=== PATIENT | female | born 1945 | race Caucasian/White ===

== ENCOUNTER 2020-04-06 09:19 | Outpatient (CLI) | payer MEDICARE ==
[2020-04-06 10:03] LABS: BASOPHILS % (AUTO) 0.6 % (0-1); EOSINOPHILS # (AUTO) 0.2 X10'3 (0-0.9); EOSINOPHILS % (AUTO) 1.9 % (0-6); HEMATOCRIT 38.4 % (35.0-45.0); HEMOGLOBIN 12.8 g/dl (12.0-16.0); LYMPHOCYTES % (AUTO) 12.3 % (21-51); MEAN CORPUSCULAR HEMOGLOBIN 29.9 PG (27.0-31.0); MEAN CORPUSCULAR HGB CONC 33.4 g/dL (33.0-36.5); MEAN CORPUSCULAR VOLUME 89.6 FL (78-98); MEAN PLATELET VOLUME 8.6 FL (7.4-10.4); MONOCYTES # (AUTO) 0.6 X10'3 (0-0.9); MONOCYTES % (AUTO) 7.5 % (2-12); NEUTROPHILS # (AUTO) 6.4 X10'3 (1.8-7.7); NEUTROPHILS % (AUTO) 77.7 % (42-75); PLATELET COUNT 308 X10'3 (140-440); RED BLOOD COUNT 4.29 X10'6 (4.20-5.60); RED CELL DISTRIBUTION WIDTH 13.1 % (11.5-14.5); WHITE BLOOD COUNT 8.2 X10'3 (4.5-11.0)
[2020-04-06 10:19] LABS: ALANINE AMINOTRANSFERASE 12 U/L (12-78); ALBUMIN 3.4 G/DL (3.4-5.0); ALBUMIN/GLOBULIN RATIO 0.8 (1.1-1.5); ALKALINE PHOSPHATASE 98 IU/L (46-116); ANION GAP 10 (8-16); ASPARTATE AMINO TRANSFERASE 13 U/L (10-37); BILIRUBIN,TOTAL 0.3 MG/DL (0.1-1.0); BLOOD UREA NITROGEN 13 MG/DL (7-18); BUN/CREATININE RATIO 19.1 (6.6-38.0); CALCIUM 9.2 MG/DL (8.5-10.1); CHLORIDE 104 MMOL/L (99-107); CREATININE 0.68 MG/DL (0.40-0.90); GLUCOSE 129 MG/DL (70-104); POTASSIUM 4.5 MMOL/L (3.5-5.1); SODIUM 140 MMOL/L (135-145); TOTAL CARBON DIOXIDE 25.9 MMOL/L (24-32); TOTAL PROTEIN 7.6 G/DL (6.4-8.2); eGFR 85 ML/MIN
== END 2020-04-06 23:59 | disposition home or self-care (01) ==
LOC: RAD 09:19
PROVIDERS: ATTEND Family Medicine
DX: E11.9 Type 2 diabetes mellitus without complications (principal); E78.5 Hyperlipidemia, unspecified; R10.9 Unspecified abdominal pain; Z87.42 Personal history of other diseases of the female genital tract; Z23 Encounter for immunization
CPT/HCPCS: 36415; 76856; 80053; 85025; 93976

== ENCOUNTER 2020-04-17 11:43 | Emergency (ER) | payer MEDICARE ==
[~2020-04-17] VITALS: Ht 172.7 cm; Wt 99.7 kg
[2020-04-17] VITALS (9 sets, daily range): BP systolic 97–156; BP diastolic 71–77
[2020-04-17] MEDS ORDERED: LIDOcaine 2% 10ml TOPICAL JELLY (Urojet) TP ONE (12:20)
[2020-04-17 12:45] LABS: BASOPHILS # (AUTO) 0.1 X10'3 (0-0.2); EOSINOPHILS # (AUTO) 0.2 X10'3 (0-0.9); HEMOGLOBIN 12.7 g/dl (12.0-16.0); MONOCYTES # (AUTO) 0.7 X10'3 (0-0.9)
[2020-04-17 12:47] LABS: CLARITY,URINE SLIGHTLY CLOUDY (Clear); COLOR,URINE STRAW (Yellow); GLUCOSE, URINE NEGATIVE (Neg); KETONES,URINE NEGATIVE (Neg); LEUKOCYTE ESTERASE ,URINE TRACE (Neg); NITRITES, URINE NEGATIVE (Neg); OCCULT BLOOD,URINE SMALL (Neg); PROTEIN,URINE NEGATIVE (Neg); UROBILINOGEN,URINE 0.2 E.U/dL (0.2-1.0)
[2020-04-17 12:56] LABS: PARTIAL THROMBOPLASTIN TIME 26 SECONDS (22-32)
[2020-04-17 12:56] LABS: UA COLLECTION TYPE CLN CATCH MIDSTREAM
[2020-04-17 12:57] LABS: BASOPHILS % (AUTO) 0.5 % (0-1); EOSINOPHILS % (AUTO) 1.8 % (0-6); HEMATOCRIT 38.4 % (35.0-45.0); LYMPHOCYTES # (AUTO) 1.4 X10'3 (1.1-4.8); LYMPHOCYTES % (AUTO) 12.9 % (21-51); MEAN CORPUSCULAR HEMOGLOBIN 29.7 PG (27.0-31.0); MEAN CORPUSCULAR VOLUME 89.9 FL (78-98); MEAN PLATELET VOLUME 9.3 FL (7.4-10.4); NEUTROPHILS # (AUTO) 8.2 X10'3 (1.8-7.7); NEUTROPHILS % (AUTO) 77.8 % (42-75); PLATELET COUNT 342 X10'3 (140-440); RED BLOOD COUNT 4.27 X10'6 (4.20-5.60); WHITE BLOOD COUNT 10.5 X10'3 (4.5-11.0)
[2020-04-17 12:58] LABS: MUCUS STRANDS FEW /LPF (Neg); SQUAMOUS EPITHELIAL CELL,UR MODERATE /LPF (FEW); TRANSITIONAL EPI CELLS,URINE FEW /HPF
[2020-04-17 12:59] LABS: BACTERIA,URINE FEW /HPF (Neg); WBC,URINE 0-4 /HPF (0-4)
[2020-04-17 13:02] LABS: ALANINE AMINOTRANSFERASE 12 U/L (12-78); ALBUMIN 3.8 G/DL (3.4-5.0); ALBUMIN/GLOBULIN RATIO 0.9 (1.1-1.5); ALKALINE PHOSPHATASE 113 IU/L (46-116); ANION GAP 12 (8-16); ASPARTATE AMINO TRANSFERASE 16 U/L (10-37); BILIRUBIN,TOTAL 0.3 MG/DL (0.1-1.0); BLOOD UREA NITROGEN 12 MG/DL (7-18); BUN/CREATININE RATIO 19.7 (6.6-38.0); CALCIUM 10.1 MG/DL (8.5-10.1); CHLORIDE 104 MMOL/L (99-107); CREATININE 0.61 MG/DL (0.40-0.90); GLUCOSE 95 MG/DL (70-104); POTASSIUM 4.5 MMOL/L (3.5-5.1); SODIUM 143 MMOL/L (135-145); TOTAL CARBON DIOXIDE 27.1 MMOL/L (24-32); TOTAL PROTEIN 8.2 G/DL (6.4-8.2); eGFR > 90 ML/MIN
--- NOTE | 2020-04-17 13:31 | NUR ---
DR SMITH AT BEDSIDE .
[2020-04-17] MEDS ORDERED: ondansetron/PF 4mg/2ml inj IV PRN (14:10)
[2020-04-17] MEDS ORDERED: fentaNYL/PF 50MCG/1 ML 2ML syringe IV PRN (14:10)
[2020-04-17] MEDS ORDERED: morphine 2 MG/ML inj. syringe IV PRN (14:10)
[2020-04-17] MEDS ORDERED: ringers solution, lacted 1,000 ML IV SCH (14:10)
[2020-04-17] MEDS ORDERED: sevoflurane 250ml liquid IH ONE (14:25)
[2020-04-17] MEDS ORDERED: cefazolin/dext.iso 2,000MG/50 ML BAG IV ONE (14:25)
[2020-04-17] MEDS ORDERED: rocuronium 10mg/ml inj IV ONE (14:28)
[2020-04-17] MEDS ORDERED: LIDOcaine 2% (20mg/ml) 5ml vial ONE (14:28)
[2020-04-17] MEDS ORDERED: fentaNYL/PF 50MCG/1 ML 2ML syringe ONE (14:28)
[2020-04-17] MEDS ORDERED: tranexamic acid 100mg/ml inj. ONE (15:09)
[2020-04-17] MEDS ORDERED: ferric subsulfate solution/paste 1 APPLIC SOL.W.APPL TP ONE (15:21)
[2020-04-17] MEDS ORDERED: glycopyrrolate 0.2mg/ml inj ONE (15:33)
[2020-04-17] MEDS ORDERED: neostigmine methylsulfate 1 MG/ML 10ml vial ONE (15:33)
[2020-04-17] MEDS ORDERED: propofol inj 20 ML IV ONE (15:33)
[2020-04-17] MEDS ORDERED: ondansetron/PF 4mg/2ml inj ONE (15:33)
--- NOTE | 2020-04-17 15:45 | NUR ---
Received from OR via [facility] , accompanied by Anesthesiologist DR ANN and report given by Anesthesiolgist. PT ALERT AND ORIENTED, SARAH PAD IN PLACE WITH NO NOTED DRAINAGE AT THIS TIME. PT STATES SHE IS COMFORTABLE AT THIS TIME AND DENIES NAUSEA.
[2020-04-17] MEDS ORDERED: traMADol 50MG tablet PO ONE (18:15)
--- NOTE | 2020-04-17 18:15 | NUR ---
PT UP TO RESTROOM ATTEMPING TO VOID, UNABLE TO VOID YET. BLADDER SCAN ONLY REVEALS 120 CC.
--- NOTE | 2020-04-17 18:25 | NUR ---
CALLED DR SMITH. LET HER KNOW PT UNABLE TO VOID AND BLADDER SCAN LESS THAN 130 ML. OK TO STRAIGHT CATH PT AND DC TO HOME. PT AGREEABLE TO PLAN.
--- NOTE | 2020-04-17 18:35 | NUR ---
PT STRAIGHT CATH PER MD ORDERS, 300 CC OF CLEAR YELLOW URINE DRAINED. PT STATES READINESS FOR DC TO HOME.
--- NOTE | 2020-04-17 18:55 | NUR ---
PT STATES UNDERSTANDING REGARDING ALL DC INSTRUCTIONS AND STATES READINESS FOR DC TO HOME. PT STATES PAIN IS TOLERABLE. SARAH PAD IN PLACE, PT HAS HAS MODERATE DRAINAGE ON SARAH PAD AND EVEN SCANT DRAINAGE AT TIMES. ALL INSTRUCTIONS REVIEWED W/ PT AND SPOUSE AND BOTH STATE UNDERSTANDING. OK FOR PT TO DC TO HOME AND PT IS TO GO TO DR SMITH OFFICE FIRST THING IN MORNING IF SHE IS UNABLE TO VOID BY MORNING.
== END 2020-04-17 18:55 | disposition home or self-care (01) ==
LOC: ER 11:44
DX: D25.9 Leiomyoma of uterus, unspecified (principal); R10.2 Pelvic and perineal pain; R33.9 Retention of urine, unspecified; Z20.822 Contact with and (suspected) exposure to COVID-19; Z87.42 Personal history of other diseases of the female genital tract; Z86.19 Personal history of other infectious and parasitic diseases; Z88.5 Allergy status to narcotic agent
CPT/HCPCS: 36415; 58145; 71045; 80053; 81001; 82948; 85025; 85610; 85730; 86885; 86900; 86901; 87088; 87426; 93005; 96374; 99285; J2001; J2270; J2405; J2704; J2710; J3010; J7120; 88305; A4618; A7000; J3490

== ENCOUNTER 2020-04-24 15:17 | Emergency (ER) | payer MEDICARE ==
[~2020-04-24] VITALS: Ht 172.7 cm; Wt 97.8 kg
[2020-04-24 15:47] VITALS: BP 139/74
== END 2020-04-24 20:48 | disposition home or self-care (01) ==
LOC: ER 15:17
DX: Z02.89 Encounter for other administrative examinations (principal); R31.9 Hematuria, unspecified; R30.0 Dysuria; I10 Essential (primary) hypertension; E11.9 Type 2 diabetes mellitus without complications; E03.9 Hypothyroidism, unspecified; Z98.890 Other specified postprocedural states; Z72.89 Other problems related to lifestyle; Z88.5 Allergy status to narcotic agent; Z88.8 Allergy status to other drugs, medicaments and biological substances
CPT/HCPCS: 99284

== ENCOUNTER 2020-04-30 08:46 | Outpatient (CLI) | payer MEDICARE ==
[~2020-04-30 08:46] MED LIST: iohexol 300mg/ml 100ml inj. ONE
== END 2020-04-30 23:59 | disposition home or self-care (01) ==
LOC: 64 CT 08:46
PROVIDERS: ATTEND Family Medicine
DX: C49.5 Malignant neoplasm of connective and soft tissue of pelvis (principal); I25.10 Atherosclerotic heart disease of native coronary artery without angina pectoris; K80.20 Calculus of gallbladder without cholecystitis without obstruction; I70.0 Atherosclerosis of aorta; M25.78 Osteophyte, vertebrae; K57.30 Diverticulosis of large intestine without perforation or abscess without bleeding; M47.817 Spondylosis without myelopathy or radiculopathy, lumbosacral region; M48.07 Spinal stenosis, lumbosacral region; M85.88 Other specified disorders of bone density and structure, other site; M43.17 Spondylolisthesis, lumbosacral region; K40.90 Unilateral inguinal hernia, without obstruction or gangrene, not specified as recurrent
CPT/HCPCS: 71260; 74177; Q9967

== ENCOUNTER 2020-05-11 18:23 | Emergency (ER) | payer MEDICARE ==
[~2020-05-11] VITALS: Ht 172.7 cm; Wt 93.1 kg
[2020-05-11 18:51] VITALS: BP 133/85
--- NOTE | 2020-05-11 21:33 | NUR ---
pt drank a liter of water, going to go to br now to see if she can void.
--- NOTE | 2020-05-11 21:41 | NUR ---
pt was able to void. Sample to lab.
[2020-05-11] MEDS ORDERED: HYDROcodone/acetaminophen 10/325mg tab PO ONE (21:55)
[2020-05-11 22:06] LABS: CLARITY,URINE SLIGHTLY CLOUDY (Clear); COLOR,URINE YELLOW (Yellow); GLUCOSE, URINE NEGATIVE (Neg); KETONES,URINE NEGATIVE (Neg); LEUKOCYTE ESTERASE ,URINE MODERATE (Neg); NITRITES, URINE NEGATIVE (Neg); OCCULT BLOOD,URINE LARGE (Neg); PROTEIN,URINE 30 mg/dl (Neg); UROBILINOGEN,URINE 0.2 E.U/dL (0.2-1.0)
[2020-05-11 22:07] LABS: UA COLLECTION TYPE CLN CATCH MIDSTREAM
[2020-05-11] MEDS ORDERED: HYDR-3972 PO (22:22)
[2020-05-11 22:30] LABS: BACTERIA,URINE FEW /HPF (Neg); MUCUS STRANDS NONE SEEN /LPF (Neg); RBC,URINE 50-100 /HPF (0-2); SQUAMOUS EPITHELIAL CELL,UR FEW /LPF (FEW); WBC,URINE 30-50 /HPF (0-4)
[2020-05-11] MEDS ORDERED: ciprofloxacin 250mg tablet PO ONE (22:35)
[2020-05-11] MEDS ORDERED: CIPR-259 PO (22:36)
== END 2020-05-11 22:55 | disposition home or self-care (01) ==
LOC: ER 18:24
DX: N39.0 Urinary tract infection, site not specified (principal); R10.2 Pelvic and perineal pain; R30.0 Dysuria; I10 Essential (primary) hypertension; E11.9 Type 2 diabetes mellitus without complications; E07.9 Disorder of thyroid, unspecified; Z98.890 Other specified postprocedural states; Z88.8 Allergy status to other drugs, medicaments and biological substances; Z88.6 Allergy status to analgesic agent; Z79.2 Long term (current) use of antibiotics; Z79.899 Other long term (current) drug therapy
CPT/HCPCS: 81001; 87088; 99284

== ENCOUNTER 2020-05-21 18:58 | Emergency (ER) | payer MEDICARE ==
[~2020-05-21] VITALS: Ht 172.7 cm; Wt 97.7 kg
[2020-05-21 19:51] LABS: BASOPHILS # (AUTO) 0.1 X10'3 (0-0.2); BASOPHILS % (AUTO) 0.6 % (0-1); EOSINOPHILS # (AUTO) 0.2 X10'3 (0-0.9); EOSINOPHILS % (AUTO) 2.3 % (0-6); HEMATOCRIT 22.9 % (35.0-45.0); HEMOGLOBIN 7.5 g/dl (12.0-16.0); LYMPHOCYTES # (AUTO) 1.6 X10'3 (1.1-4.8); LYMPHOCYTES % (AUTO) 19.3 % (21-51); MEAN CORPUSCULAR HEMOGLOBIN 30.2 PG (27.0-31.0); MEAN CORPUSCULAR VOLUME 91.6 FL (78-98); MEAN PLATELET VOLUME 7.6 FL (7.4-10.4); MONOCYTES # (AUTO) 0.6 X10'3 (0-0.9); MONOCYTES % (AUTO) 7.4 % (2-12); NEUTROPHILS # (AUTO) 5.7 X10'3 (1.8-7.7); NEUTROPHILS % (AUTO) 70.4 % (42-75); PLATELET COUNT 495 X10'3 (140-440); RED CELL DISTRIBUTION WIDTH 14.5 % (11.5-14.5); WHITE BLOOD COUNT 8.1 X10'3 (4.5-11.0)
[2020-05-21 20:02] LABS: ALANINE AMINOTRANSFERASE 44 U/L (12-78); ALBUMIN 2.8 G/DL (3.4-5.0); ALBUMIN/GLOBULIN RATIO 0.8 (1.1-1.5); ALKALINE PHOSPHATASE 117 IU/L (46-116); ANION GAP 10 (8-16); ASPARTATE AMINO TRANSFERASE 76 U/L (10-37); BILIRUBIN,TOTAL 0.2 MG/DL (0.1-1.0); BLOOD UREA NITROGEN 11 MG/DL (7-18); BUN/CREATININE RATIO 15.5 (6.6-38.0); CALCIUM 8.6 MG/DL (8.5-10.1); CHLORIDE 104 MMOL/L (99-107); CREATININE 0.71 MG/DL (0.40-0.90); GLUCOSE 99 MG/DL (70-104); POTASSIUM 4.1 MMOL/L (3.5-5.1); SODIUM 140 MMOL/L (135-145); TOTAL CARBON DIOXIDE 26.2 MMOL/L (24-32); TOTAL PROTEIN 6.2 G/DL (6.4-8.2); eGFR 80 ML/MIN
[2020-05-21 20:23] VITALS: BP 170/82
[2020-05-21] MEDS ORDERED: iohexol 350MG/ML 100ml bottle IV ONE (20:35)
[2020-05-21] MEDS ORDERED: FURO-150 PO (21:45)
[2020-05-21 22:00] LABS: PLATELET ESTIMATE INCREASED; TOTAL CELLS COUNTED 100
[2020-05-21 22:01] LABS: ANISOCYTOSIS 1+; POLYCHROMASIA FEW
== END 2020-05-21 21:56 | disposition home or self-care (01) ==
LOC: ER 18:58
DX: R06.02 Shortness of breath (principal); R22.43 Localized swelling, mass and lump, lower limb, bilateral; I10 Essential (primary) hypertension; E11.9 Type 2 diabetes mellitus without complications; E07.9 Disorder of thyroid, unspecified; Z98.890 Other specified postprocedural states; Z90.710 Acquired absence of both cervix and uterus; Z79.2 Long term (current) use of antibiotics; Z79.899 Other long term (current) drug therapy; Z88.8 Allergy status to other drugs, medicaments and biological substances; Z88.6 Allergy status to analgesic agent
CPT/HCPCS: 36415; 71045; 71275; 80053; 83880; 84484; 85007; 85025; 93005; 99285; Q9967